=== PATIENT | female | born 1980 | race African-American/Black ===

== ENCOUNTER 2021-06-03 15:45 | Emergency (ER) | payer MEDICAID ==
[~2021-06-03] VITALS: Ht 167.6 cm; Wt 118.0 kg
[~2021-06-03 15:45] MED LIST: CITA10TA16; HYDR-1348; HYDROCHLOROTHIAZIDE; PREN1TAB19; TRAZODONE
[2021-06-03] MEDS ORDERED: ONDANSETRON HCL 4MG/2ML INJ IV STA (21:43)
[2021-06-03 22:13] LABS: HEMATOCRIT. 38.9 % (36.0-48.0); MEAN CORPUSCULAR HEMOGLOBIN 29.9 pg (28.0-32.0); MEAN CORPUSCULAR VOLUME 89.4 fL (81.0-99.0); MEAN PLATELET VOLUME 7.6 fl (7.4-10.4); PLATELET 320 x1000/uL (130-400); RED BLOOD CELL COUNT 4.35 mill/uL (4.2-5.4); RED CELL DISTRIBUTION WIDTH 13.7 % (11.6-14.6)
[2021-06-03 22:15] LABS: CLARITY URINE CLOUDY (CLEAR); COLOR URINE DARK YELLOW (YELLOW); KETONES URINE 2+ (NEGATIVE); LEUKOCYTE ESTERASE URINE NEGATIVE (NEGATIVE); NITRITE URINE NEGATIVE (NEGATIVE); OCCULT BLOOD URINE 3+ (NEGATIVE); PH URINE 5.5 (4.5-8.0); PROTEIN URINE 2+ (NEGATIVE); SPECIFIC GRAVITY URINE 1.037 (1.005-1.030)
[2021-06-03 22:19] LABS: CHLORIDE 103 mEq/L (98-107)
[2021-06-03 22:23] LABS: ETHANOL BLOOD < 10 mg/dL
[2021-06-03 22:30] LABS: *AMPHETAMINES SCREEN URINE NEGATIVE (NEGATIVE); *BARBITURATES SCREEN URINE NEGATIVE (NEGATIVE); *BENZODIAZEPINES SCREEN URINE NEGATIVE (NEGATIVE); *COCAINE SCREEN URINE NEGATIVE (NEGATIVE)
[2021-06-03 22:31] LABS: METHADONE URINE SCREEN NEGATIVE (NEGATIVE); OPIATES URINE SCREEN NEGATIVE (NEGATIVE); PHENCYCLIDINE URINE SCREEN NEGATIVE (NEGATIVE)
[2021-06-03 22:39] LABS: CANNABINOID URINE SCREEN PRESUMTIVE POSITIVE (NEGATIVE)
[2021-06-03 22:40] LABS: PLATELET ESTIMATE NORMAL
[2021-06-04 02:00] VITALS: BP 122/75
== END 2021-06-04 02:37 | disposition home or self-care (01) ==
LOC: ER 15:45
DX: K52.9 Noninfective gastroenteritis and colitis, unspecified (principal); D35.01 Benign neoplasm of right adrenal gland; F12.90 Cannabis use, unspecified, uncomplicated
CPT/HCPCS: 36415; 74176; 80053; 80305; 80320; 81003; 81025; 83690; 85025; 93005; 96374; 99285; J2405; G0480